=== PATIENT | male | born 1995 | race Caucasian/White ===

== ENCOUNTER 2018-04-16 15:25 | Emergency (ER) | payer OTHER ==
[2018-04-16] MEDS: predniSONE 20 MG TAB PO (16:05)
[2018-04-16] MEDS: FAMOTIDINE 20 MG TAB PO (16:05)
== END 2018-04-16 16:09 | disposition home or self-care (01) ==
LOC: FTE 16:09
DX: L50.9 Urticaria, unspecified (principal)
CPT/HCPCS: 99283